=== PATIENT | male | born 1980 | race Caucasian/White ===

== ENCOUNTER 2020-02-16 05:54 | Emergency (ER) | payer MEDICAID, SELFPAY ==
[2020-02-16 06:04] VITALS: BP 109/78; PULSE 83; RESP 14; TEMP 36.9; O2SAT 98; BMI 21.6
--- NOTE | 2020-02-16 06:15 | [facility].EDMCLR ---
ED Disposition Clinical Impression: Medical clearance for incarceration Disposition: Home, Self-Care Condition on Discharge: Good Instructions: DI for Drug or Alcohol Withdrawal Additional Instructions: see pcp for follow up Referrals: Provider,Referral, [Primary Care Provider] - - Critical Care Critical Care Time: No Attestation: On 02/16/20, the high probability of a clinically significant, sudden or life threatening deterioration of the following system(s) required my full and direct attention, intervention and personal management. The time I documented below is in addition to time spent performing reported procedures but includes the following listed in this critical care notation. Medical Decision Making - Medical Records Medical records reviewed: Yes: I reviewed the patient's medical records. - Fernando Inquiry Pt receiving controlled substance: No Vital Signs: 02/16/20 06:04 Temperature 98.5 F Temperature Source Oral Pulse Rate [Right Brachial] 83 Respiratory Rate 14 Blood Pressure [Right Arm] 109/78 L Blood Pressure Mean [Right Arm] 88 Blood Pressure Source [Right Arm] Automatic Cuff Blood Pressure Position [Right Arm] Sitting 02 Sat by Pulse Oximetry 98 Oxygen Delivery Method Room Air Medical Clearance HPI - General Chief complaint: Medical Clearance Stated complaint: medical clearnace Time Seen by Provider: 02/16/20 06:15 Mode of Arrival: Ambulatory Source of Information: Patient, Medical Record Description of Symptoms (Recalled from ER Triage Doc. by RN): Patient here for medical clearance. patient reports he is an IV drug user and last used at 0200. - History of Present Illness HPI Narrative: hx of occ chills but no specific c/o and has hx of ivdu complaint: medical clearance requested Onset (ago): hour(s) Reason for Medical Clearance: intoxication Place: home Alleged Intoxication: Yes Traumatic Symptoms: denies traumatic injury Associated Symptoms: denies other symptoms Treatments Prior to Arrival: none Home medications: Home Medications Medication Instructions Recorded Confirmed Buprenorphine HCl/Naloxone HCl 1 each SL BID 01/14/18 01/14/18 [Suboxone 8 mg-2 mg Sl Film] Previous Rx's Medication Instructions Recorded Ibuprofen [Motrin 600mg 600 mg PO Q6HP PRN #20 tab 09/27/19 Tablet] Ibuprofen [Ibuprofen 800mg Tab] 800 mg PO Q8HP PRN #15 tab 10/18/19 Allergies/Adverse reactions: Allergies Allergy/AdvReac Type Severity Reaction Status Date / Time From MARY Allergy Unknown Uncoded 12/19/17 14:41 From ZANTAC Allergy Unknown Uncoded 08/27/17 14:41 [facility] History - Hepatitis A Screen Drug use history?: No High risk sexual behaviors?: No History of sexually transmitted infection?: No Currently employed?: No Childcare worker?: No Do you have indoor plumbing?: Yes Do you have electricity?: Yes Attestation statement:: This patient has been screened for Hepatitis A risk factors. I have reviewed the patient's past medical history: Yes Medical History: Denies:: Diabetes Mellitus Type 1, Diabetes Mellitus Type 2 - Social History Smoking Status: Current every day smoker Tobacco Type: cigarettes # Packs/Day (cigarettes): 1 Alcohol Intake: never Substance Use Type: heroin Last Used Substance: hours (ago) Occupational Status: unemployed Housing: other ROS Obtained: Yes All systems reviewed & no additional complaints - Constitutional Constitutional: Denies fever(s) - Eyes Eyes: Denies change in vision - ENT Ears, Nose, Mouth, and Throat: Denies sore throat - Cardiovascular Cardiovascular: Denies chest pain, Denies dyspnea - Respiratory Respiratory: No cough - Gastrointestinal Gastrointestingal: Denies: abdominal pain - Genitourinary Male Genitourinary: Denies hematuria - Musculoskeletal Musculoskeletal: Denies joint pain - Integumentary/Breasts Skin/Breast: Denies rash - Neurologic Neurologic: Denies foc
[2020-02-16 06:25] VITALS: BP 110/74; PULSE 82; RESP 14; TEMP 36.9; O2SAT 98
== END 2020-02-16 06:27 | disposition home or self-care (01) ==
PROVIDERS: Emergency Provider Emergency Medicine
DX: F11.929 Opioid use, unspecified with intoxication, unspecified (principal); F17.210 Nicotine dependence, cigarettes, uncomplicated; Z88.8 Allergy status to other drugs, medicaments and biological substances
CPT/HCPCS: 99282

== ENCOUNTER 2020-04-21 19:41 | Emergency (ER) | payer MEDICAID, SELFPAY ==
[2020-04-21 19:42] VITALS: BP 128/82; PULSE 80; RESP 16; TEMP 37.3; O2SAT 94; BMI 21.5
[2020-04-21 20:09] LABS: Basophils # 0.1 K/mm3 (0-0.2); Basophils % 0.8 % (0.1-2.0); Eosinophils # 0.3 K/mm3 (0.0-0.4); Eosinophils % 2.1 % (0.1-12.0); Hemoglobin 14.3 g/dL (14.1-18.0); Lymphocytes # 4.2 K/mm3 (0.7-4.5); Mean Corpuscular HGB Conc 33.3 g/dL (31.8-35.4); Mean Corpuscular Volume 96.1 fl (80-94); Mean Platelet Volume 7.9 fl (7.4-10.4); Monocytes # 0.8 K/mm3 (0.1-1.0); Monocytes % 6.9 % (1.7-9.3); Neutrophils # 6.9 K/mm3 (1.8-7.8); Neutrophils % 56.2 % (37.0-80.0); Platelet Count 242 K/mm3 (142-424); Red Blood Count 4.47 M/mm3 (4.60-6.20); Red Cell Distribution Width 13.7 % (11.5-17.5); White Blood Count 12.3 K/mm3 (4.8-10.8)
[2020-04-21 20:10] LABS: Chloride 102 mmol/L (98-107); Potassium 3.8 mmoL/L (3.5-5.1); Sodium 139 mmol/L (136-145)
[2020-04-21 20:12] LABS: Alanine Aminotransferase 49 U/L (12-78); Aspartate Amino Transferase 51 U/L (17-59); Blood Urea Nitrogen 20 mg/dl (9-20); Creatinine Clearance Estimated 95 mL/min (50-200); Estimated Glomerular Filt Rate 83 ml/min (>60); GFR (African American) 101 ML/MIN (>60)
--- NOTE | 2020-04-21 20:12 | HMH.EDMCLR ---
ED Disposition Clinical Impression: Medical clearance for incarceration Disposition: Home, Self-Care Condition on Discharge: Good Referrals: PCP,No [Primary Care Provider] - - Critical Care Critical Care Time: No Attestation: On 04/21/20, the high probability of a clinically significant, sudden or life threatening deterioration of the following system(s) required my full and direct attention, intervention and personal management. The time I documented below is in addition to time spent performing reported procedures but includes the following listed in this critical care notation. Medical Decision Making - Medical Records Medical records reviewed: Yes: I reviewed the patient's medical records. - Fernando Inquiry Pt receiving controlled substance: No Vital Signs: 04/21/20 19:42 Temperature 99.1 F Temperature Source Oral Pulse Rate [Left] 80 Respiratory Rate 16 Blood Pressure [Right Arm] 128/82 Blood Pressure Mean [Right Arm] 97 Blood Pressure Source [Right Arm] Automatic Cuff Blood Pressure Position [Right Arm] Supine 02 Sat by Pulse Oximetry 94 L Oxygen Delivery Method Room Air - Lab Data Lab results reviewed: Yes: I reviewed the patient's lab results. Lab Results 04/21/20 19:46: WBC 12.3 H, RBC 4.47 L, Hgb 14.3, Hct 43.0, MCV 96.1 H, MCH 32.0 H, MCHC 33.3, RDW 13.7, Plt Count 242, MPV 7.9, Neut % (Auto) 56.2, Lymph % (Auto) 34.0, [place] % (Auto) 6.9, Eos % (Auto) 2.1, Baso % (Auto) 0.8, Neut # (Auto) 6.9, Lymph # (Auto) 4.2, [place] # (Auto) 0.8, Eos # (Auto) 0.3, Baso # (Auto) 0.1 04/21/20 19:46: Sodium 139, Potassium 3.8, Chloride 102, Carbon Dioxide 28, Anion Gap 12.8, BUN 20, Creatinine 1.00, Estimated Creat Clear 95, Estimated GFR 83, Est GFR ( Amer) 101, Glucose 92, Calcium 8.9, Total Bilirubin 0.4, AST 51, ALT 49, Alkaline Phosphatase 90, Total Protein 7.1, Albumin 3.9, Globulin 3.2, Albumin/Globulin Ratio 1.2 Result diagrams: 04/21/20 19:46 04/21/20 19:46 Orders (Tests/Meds): ED MEDICATIONS Generic Name Dose Route Start Last Admin Trade Name Freashlee PRN Reason Stop Dose Admin Sodium Chloride 1,000 mls @ 999 mls/hr 04/21/20 20:00 04/21/20 20:04 Sod Chlor 0.9% 1000ml Bag IV 04/21/20 21:00 999 mls/hr .[id number] JOSE Administration Medical Clearance HPI - General Chief complaint: Medical Clearance Stated complaint: Medical Clearance Time Seen by Provider: 04/21/20 20:00 Mode of Arrival: EMS Source of Information: Patient, Medical Record Description of Symptoms (Recalled from ER Triage Doc. by RN): Pt states he did Heroin and Meth today, states he is fine now, but does drugs daily - History of Present Illness HPI Narrative: pt with occ episodes of feeling dizzyness at times with standing - uses drugs daily and nonspecific chest pain at times - none now - MD complaint: medical clearance requested Onset (ago): hour(s) Reason for Medical Clearance: intoxication Place: street Alleged Intoxication: Yes Traumatic Symptoms: denies traumatic injury Treatments Prior to Arrival: none Home medications: Home Medications Medication Instructions Recorded Confirmed Buprenorphine HCl/Naloxone HCl 1 each SL BID 01/14/18 01/14/18 [Suboxone 8 mg-2 mg Sl Film] Previous Rx's Medication Instructions Recorded Ibuprofen [Motrin 600mg 600 mg PO Q6HP PRN #20 tab 09/27/19 Tablet] Ibuprofen [Ibuprofen 800mg Tab] 800 mg PO Q8HP PRN #15 tab 10/18/19 Allergies/Adverse reactions: Allergies Allergy/AdvReac Type Severity Reaction Status Date / Time From TALWIN Allergy Unknown Uncoded 08/27/17 14:41 From ZANTAC Allergy Unknown Uncoded 08/27/17 14:41 [facility] History - Hepatitis A Screen Drug use history?: No High risk sexual behaviors?: No History of sexually transmitted infection?: No Currently employed?: No Childcare worker?: No Do you have indoor plumbing?: Yes Do you have electricity?: Yes Attestation statement:: This patient has been screened for Hepatit
[2020-04-21 20:13] LABS: Albumin Level 3.9 g/dl (3.5-5.0); Albumin/Globulin Ratio 1.2 (1.1-1.8); Alkaline Phosphatase 90 U/L (38-126); Anion Gap 12.8 mEq/L (5-15); Bilirubin,Total 0.4 mg/dl (0.2-1.3); Calcium 8.9 mg/dl (8.4-10.2); Carbon Dioxide 28 mmol/L (22.0-30.0); Globulin 3.2 g/dL (1.3-3.2); Glucose 92 mg/dl (74-100); Total Protein,Serum 7.1 g/dl (6.3-8.2)
[2020-04-21 20:48] VITALS: BP 129/54; PULSE 86; RESP 16; TEMP 37.1; O2SAT 98
== END 2020-04-21 20:51 | disposition home or self-care (01) ==
PROVIDERS: Emergency Provider Emergency Medicine
DX: F19.10 Other psychoactive substance abuse, uncomplicated (principal); R42 Dizziness and giddiness; Z88.8 Allergy status to other drugs, medicaments and biological substances; F17.210 Nicotine dependence, cigarettes, uncomplicated
CPT/HCPCS: 80053; 85025; 96365; 99283